=== PATIENT | female | born 1950 | race Caucasian/White ===

== ENCOUNTER 2023-09-10 10:41 | Outpatient (AMB) | payer OTHER, SELFPAY ==
--- NOTE | 2023-09-10 11:29 | AM.OFFWIN_ITS ---
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 She states that she clipped the fingernail 2 days ago and she might have clipped it too low, she states she has neuropathy so she can not feel her fingers. She states she was with a friend yesterday and the friend told her it was infected. She states she is able to move her fingers as normal and denies any fevers or pain. Patient states she does not have a primary care doctor at this time because of insurance issues. [facility] Social History Patient Tobacco Use Status: Never used Tobacco Review of Systems Const All systems reviewed & are unremarkable except as noted in HPI and below Physical Exam Vital Signs: Last Vital Signs Temp 97.8 F 09/10/23 11:31 Pulse 73 09/10/23 11:31 BP 128/72 09/10/23 11:31 Pulse Ox 97 09/10/23 11:31 BMI result Body Mass Index 30.5 Const General: cooperative, healthy appearing, comfortable and no acute distress Orientation/consciousness: patient oriented x3 Limitations: no limitations HEENT Head: Yes normal to inspection Resp Effort & Inspection: normal respiratory effort and able to speak in complete sentences Neuro General: patient oriented x3 Extrem Other: Left 3rd digit has pinpoint area of dried blood on top of distal nail. On both sides of the nail on just the skin, there is ecchymosis that extends around the pad of the distal finger. There is no warmth, no weeping, no open wound and no signs of infection noted. normal cap refill, normal ROM of the finger. Assessment & Plan Assessment & Plan (1) Finger contusion: Code(s): S60.00XA - Contusion of unspecified finger without damage to nail, initial encounter Qualifiers: Encounter type: initial encounter Finger: middle finger Damage to nail status: without damage Laterality: left Qualified Code(s): S60.032A - Contusion of left middle finger without damage to nail, initial encounter Plan: As patient is very concerned there is an infection and she does not have a primary care doctor, I will send a prescription for an antibiotic to cover cellulitis if this does turn into a cellulitis. 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 She knows of the gets worse, she should go to the emergency department. Plan See above Medications: New cefuroxime axetil 500 mg PO Q12H 10 tabs 0RF Coding Level of Care Code New Pt Level 3 (52174) Diagnoses Contusion of left middle finger without damage to nail, initial encounter S60.032A Encounter type: initial encounter Finger: middle finger Damage to nail status: without damage Laterality: left
[2023-09-10 11:31] VITALS: BP 128/72; PULSE 73; TEMP 36.6; O2SAT 97; BMI 30.5
== END 2023-09-10 11:58 | disposition home or self-care (01) ==
PROVIDERS: PCP Internal Medicine; Visit Provider Physician Assistant
DX: S60.032A Contusion of left middle finger without damage to nail, initial encounter (principal)
CPT/HCPCS: 99203

== ENCOUNTER 2023-09-18 13:45 | Outpatient (AMB) | payer OTHER, SELFPAY ==
--- NOTE | 2023-09-18 13:59 | AM.OFFWIN_ITS ---
Intake Vital Signs 09/18/23 14:00 Height 5 ft Weight 151 lb 4 oz BMI 29.5 BP 128/88 Blood Pressure Location Lt brachial Position Sitting Pulse 82 Pulse Source Pulse Oximeter Temp 97.0 F Temp Source Temporal Artery Scan Pulse Oximetry (%) 96 Oxygen Delivery Method Room Air Intake Visit Reasons: EP Fever, congestion/?bronchitis Intake Note: Bonita is a 73 year old female who presents to the office today for c/o fever,congestion, ? bronchitis that started Saturday09/15/23. Pt states she does know of someone she was in contact with (not close) that has covid. Patient Tobacco Use Status: Never used Tobacco Allergies No Known Allergies [No Known Allergies*] Allergy (Unverified 09/18/23 14:01) HPI HPI Comments History of Present Illness Details 73 year old female who presents to the [facility] in clinic today for c/o fever,congestion, ? bronchitis that started Saturday09/15/23. Pt states she does know of someone she was in contact with (not close) that has covid. [facility] Social History Patient Tobacco Use Status: Never used Tobacco Review of Systems Const All systems reviewed & are unremarkable except as noted in HPI and below Physical Exam Vital Signs: Last Vital Signs Temp 97.0 F 09/18/23 14:00 Pulse 82 09/18/23 14:00 BP 128/88 09/18/23 14:00 Pulse Ox 96 09/18/23 14:00 Oxygen Delivery Method Room Air 09/18/23 14:00 BMI result Body Mass Index 29.5 Const General: comfortable and no acute distress Nutritional Appearance: overweight Orientation/consciousness: patient oriented x3 HEENT Head: Yes normocephalic Ears: external ears normal and TM abnormal with fluid behind the TM General nose exam: Normal nasal mucous membranes and turbinates present Face and sinus: Yes sinuses nontender Mouth: moist mucous membranes Throat: Yes postnasal drainage Resp Effort & Inspection: normal respiratory effort and able to speak in complete sentences Auscultation: clear to auscultation bilaterally, no crackles, no rales and no rhonchi Cardio Rhythm: abnormal rhythm irregularly irregular Heart sounds: Murmur heart sound present Neuro General: patient oriented x3, gait normal and moves all extremities Psych Speech and movement: Normal speech and movement present Assessment & Plan Assessment & Plan (1) Upper respiratory infection: Code(s): J06.9 - Acute upper respiratory infection, unspecified Qualifiers: URI type: unspecified viral URI Qualified Code(s): J06.9 - Acute upper respiratory infection, unspecified Plan: Rest and hydrate well with plenty of fluids Acetaminophen for pain relief OTC cold remedies. Orders: Orders SARS-CoV2/FLU/RSV Today J06.9 - Acute upper respiratory infection, unspecified Medications: New dmfylbqwjgtep-OT-uiegbyilxix 5-10-100 mg/5 mL (Adult Robitussin Peak Cold M-S) 10 mL PO Q4H PRN 237 mL 0RF cold symptoms J06.9 - Acute upper respiratory infection, unspecified acetaminophen 1,000 mg (2 x 500 mg) PO Q6H PRN 30 caps 0RF fever J06.9 - Acute upper respiratory infection, unspecified benzonatate 100 mg PO TID 30 caps 0RF J06.9 - Acute upper respiratory infection, unspecified Coding Level of Care Code Est Pt Level 3 (60668) Diagnoses Viral upper respiratory tract infection J06.9 URI type: unspecified viral URI Time Spent (min) 15
[2023-09-18 14:00] VITALS: BP 128/88; PULSE 82; TEMP 36.1; O2SAT 96; BMI 29.5
== END 2023-09-18 14:33 | disposition home or self-care (01) ==
PROVIDERS: PCP Internal Medicine; Visit Provider Nurse Practitioner Family
DX: J06.9 Acute upper respiratory infection, unspecified (principal)
CPT/HCPCS: 99213

== ENCOUNTER 2023-09-18 14:09 | Outpatient (REF) | payer OTHER, SELFPAY ==
[2023-09-18 18:00] LABS: Influenza A PCR NEGATIVE (Negative); Influenza B PCR NEGATIVE (Negative); Resp Syncy Virus RNA Qual PCR NEGATIVE (Negative); SARS COV2 PCR INHOUSE POSITIVE (Negative)
== END 2023-09-18 14:10 | disposition home or self-care (01) ==
LOC: HO.LAB 14:09
PROVIDERS: Visit Provider Nurse Practitioner Family
DX: J06.9 Acute upper respiratory infection, unspecified (principal)
CPT/HCPCS: 0241U

== ENCOUNTER 2025-01-25 08:58 | Outpatient (AMB) | payer OTHER, SELFPAY ==
--- NOTE | 2025-01-25 09:02 | A.OFFVIS_ITS ---
Intake Visit Reasons: GBS abnormal gait Allergies No Known Allergies (No Known Allergies*) Allergy (Unverified 09/18/23 14:01) HPI Comments Details: The patient is a 74 year old individual presenting for a new patient neurology consultation for management of chronic neuropathy. 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 Following the h ospitalization, the patient completed two rehabilitation programs. As a sequela of Guillain-Porter? syndrome, the patient has been left with weakness and chronic neuropathy characterized by numbness, tingling, and pain in the hands and feet. The patient feels the neuropathy is not improving and may be worsening, which is attributed to age. This has resulted in balance issues and difficulty walking upstairs. The patient reports that symptoms in the hands feel worse later in the evening and also notes new swelling in the feet. The patient is currently taking two pills of gabapentin at night after having weaned down the dosage and is able to sleep without disruption from pain. The patient also believes there is a component of arthritis. The patient was previously followed by a neurologist in the [facility] but is seeking a new provider due to dissatisfaction with the previous care, citing brief visits and lack of physical examination. [facility] Social History Patient Tobacco Use Status: Never used Tobacco Review of Systems Narrative Constitutional:?No fever, chills, fatigue, weight loss, or night sweats. HEENT:? Complain of dryness and redness of eyes in hearing Cardiovascular:?No chest pain, palpitations, orthopnea, PND, or leg swelling. Respiratory:? Complain of wheezing Gastrointestinal:?No nausea, vomiting, abdominal pain, diarrhea, or constipation. Genitourinary:?No dysuria, frequency, incontinence, or hematuria. Musculoskeletal:? Complain of joint pains Neurological:? Complain of numbness and tingling and leg cramping Psychiatric:?No anxiety, depression, mood swings, sleep disturbance, or hallucinations. Endocrine:?No heat/cold intolerance, polydipsia, polyuria, or hair/skin changes. Hematologic/Lymphatic:?No easy bruising, bleeding, or lymphadenopathy. Integumentary (Skin):? Complain of rash Allergic/Immunologic:?No seasonal allergies, hives, or recurrent infections. Physical Exam Neuro Other: Mental Status: Alert and oriented to person, place, and time. Normal attention. Normal spontaneous speech, fluency, and comprehension. Cranial Nerves: CN II: Visual kidd full to confrontation, visual acuity intact. CN III, IV, : Pupils equal, round, reactive to light and accommodation. Extraocular movements are normal. CN V: Facial sensation is normal. CN VII: Facial movements symmetrical. CN VIII: Hearing intact to bedside conversation is normal. CN IX, X: Palate elevates symmetrically. CN XI: Shoulder shrug and head turn symmetrical. CN XII: Tongue midline without atrophy or fasciculations. Motor: No focal arm or leg weakness. Mild hand and feet muscle atrophy. Reflexes: Deep tendon reflexes are absent in ankles trace in knees and arms. Plantars are flexor. Coordination: Yghtef-wv-ibvo and ucrr-fh-acry testing normal. No dysmetria. Gait and Station: No obvious gait abnormality. No ataxia or instability. Sensory: Decreased cold and vibratory sensation in feet. Joint position sensation is absent in toes. Extrapyramidal: Full facial expressions and blinking. No rigidity. Movements are appropriate with no tremor or abnormality. Speech: Normal; no dysarthria or tremor. 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 After finishing treatment in hospital, she was referred to rehab which she did for many weeks. Slowly and gradually she improved. After that she continued to follow probably a rehab doctor and wanted to switch her care to a neurologist. Her present symptoms were numbness tingling and pain in hands and feet. She said that these symptoms were not improving and maybe slowly getting worse. There was no bowel or bladder difficulty or difficulty with speaking or breathing. No problem with swallowing. Her examination revealed signs of chronic peripheral neuropathy probably sensory more than motor. EMG nerve co nduction studies were requested to classify in great neuropathy. She was educated about chronic peripheral neuropathy in his symptoms, some of which might be permanent. As far as treatment is concerned, she was advised to minimize use of gabapentin and only use it on either at night or on as needed basis as her symptoms or relatively mild and treatment could be avoided during daytime. She should stay physically active and tried to walk every day. Orders: Orders NE electromyogram (EMG) Today G6 - Chronic inflammatory demyelinating polyneuritis NE nerve conduction velocity Today - Chronic inflammatory demyelinating polyneuritis Coding Level of Care Code New Pt Level 4 (29982) Diagnoses CIDP (chronic inflammatory demyelinating polyneuropathy) G6
--- OUTSIDE RECORDS SUMMARY | 2025-01-25 10:16 | XMS_ITS | Clinical Summary ---
Author Organization [facility] Address [address] [address] Phone Care Team Providers Care Lineman Name Role Phone Vanessa Kelly MD Primary Care Provider [phone] Allergies Active Allergy Reactions Criticality Noted Date Comments Grass Pollen 10/02/2023 Pollen Extracts 10/02/2023 Medications FLUoxetine (PROZAC) 10 MG capsule Orally Active OMEPRAZOLE ORAL Active CALCIUM ORAL Active Medication-Abdifatah e Text Osteo Bi-Flex Adv Double St Active Medication-Abdifatah e Text Vitamin A 1000 iu Ac tive atenolol (TENORMIN) 50 mg tablet Active Medication-Abdifatah e Text Multivitamins Active ALBUTEROL SULFATE INHL 2 puffs prn Activ e albuterol 90 mcg/actuation inhaler Inhale 2 puffs into the lungs. 4 Active FLUoxetine (PROZAC) 20 MG capsule Take 1 capsule by mouth daily. 4 Active gabapentin (NEURONTIN) 100 MG capsule Take 2 capsules by mouth daily. 3 Active amLODIPine (NORVASC) 5 MG tablet Take 1 tablet by mouth daily. 4 Active atenolol (TENORMIN) 50 mg tablet Take 1 tablet by mouth daily. 4 Active calcium carbonate (OS-BRENDAN) 1,500 mg (600 mg elemental) tablet Take 600 mg by mouth. 4 Active cholecalcifero l (VITAMIN D3) 2,000 unit tablet Take 2,000 Units by mouth daily. Active Active Problems No known active problems Social History Tobacco Use Types Packs/Day Years Used Date Smoking Tobacco: Never Smokeless Tobacco: Never Tobacco Cessation:Counseling Given: Not Answered Education Answer Date Recorded Are you interested in more education? Not on sagrario e 05/15/2023 Are you concerned about learning? Not on file 05/15/2023 No 05/15/2023 No 05/15/2023 Digital Access Answer Date Recorded No 05/15/2023 No 05/15/2023 Reliable internet access at home? Not on file 05/15/2023 Device with a working camera? Not on file Comments Unknown Sex and Gender Information Value Date Recorded Sex Assigned at Not on file Legal Sex Female 10:03 PM EDT Gender Identity Not on file Sexual Orientation Not on file Last Filed Vital Signs Vital Sign Reading Time Taken Comments Blood Pressure 136/84 01/11/2016 2:23 AM EST Pulse 52 01/11/2016 2:23 AM EST Temperature - - Respiratory Rate - - Oxygen Saturation - - Inhaled Oxygen Concentration - - Weight 66.1 kg (145 lb 11.2 oz) 01/11/2016 2:23 AM EST Height 151.1 cm (4' 11.5 ) 01/11/2016 2:23 AM ES T Body Mass Index 28.94 01/11/2016 2:23 AM EST Plan of Treatment Health Maintenance Due Date Last Done Comments DEPRESSION SCREENING 1961 HEPATITIS C SCREENING 1967 COLOGUARD 1994 COLONOSCOPY 1994 COLORECTAL CANCER SCREENING 1994 FIT TEST 1994 FOBT 1994 SIGMOIDOSCOPY 1994 VIRTUAL COLONOSCOPY 1994 ZOSTER VACCINES (2 of 3) 08/25/2012 06/30/2012 OSTEOPOROSIS SCREENING INITIAL (ONE-TIME) 2014 PNEUMOCOCCAL VACCINES (50+ years) (3 of 3 - PCV20 or PCV21) 02/24/2023 02/24/2018, 11/08/2010 RSV VACCINE (1 - 1-dose 75+ series) 2024 INFLUENZA VACCINE (#1) 2024 7, 02/04/2014, 01/12/2013, Additional history exists COVID-19 VACCINE (3 - 2024- season) 2024 10/21/2020, 08/24/2020 Adult Td,Tdap Booster 02/25/2028 02/24/2018, 011 LIPID PANEL 08/18/2028 08/19/2023 SMOKING STATUS SCREENING (Once After 26 Yrs) Completed 10/02/2023 HEPATITIS A VACCINES Aged Out No long er eligible based on patient's age to complete this topic HIB VACCINES Aged Out No longer eligi ble based on patient's age to complete this topic MENINGOCOCCAL VACCINES (ACWY) Aged Out No longer eligible based on patient's age to complete this topic MENINGOCOCCAL VACCINES (B) Aged Out N o longer eligible based on patient's age to complete this topic Medical [place] [address] [facility] MEDICARE REPLACEMENT MEDICARE PART A & B GRACIE MULLIGAN [id number] GRACIE [address] [id number] [facility] [place] [address] [facility] [place] [address] [facility] [place] [address] [facility] [place] [address] [facility] [place] [address] [facility] [place] [address] Care Teams Lineman Relationship Specialty Start Date End Date Vanessa Kelly MD [address] [place] [address] PCP - General 05/15/23 Additional Source Comments The information contained in this document represents components of the legal health record. It is not the complete legal health record.[facility]
--- OUTSIDE RECORDS SUMMARY | 2025-01-25 10:16 | XMS_ITS | Data Portability ---
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 Exam continues to show mild imbalance but the armswing is normalized. Weakness is only borderline appreciable on left wrist extension versus last year:mild weakness in wrist flexion and extension as well as thumb abduction. She wishes advice on cream that might have benefit for neuropathic discomfort of her ocid-fzp-wggqidn tingling in forearms and hands as she is concerned about increasing gabapentin anymore given the potential of side effects. We discussed lidocaine 4% cream and capsaicin cream and I give her some advice on these znur-ose-aeimphi medications as detailed in the plan below. She wonders if she can get the new shingles vaccine. I tell her there is no contraindication for her from the neurological perspective. She wonders if she should get arthritis consultation for discomfort in her hands that she feels is arthritis. I asked her to discuss this with primary care. I can only speculate about the recent that she feels some visual compromise wearing a mask both driving and writing. Perhaps she is looking to close I had of her so that the mask protrudes into the lower visual field. Perhaps some occupational therapy for how she observes the environment both walking and driving might be of benefit. Driving, if there is no one else in the car, she could just not wear a mask. I defer pursuit of this issue to primary care. She reports no other changes in medications since his initial consultation: Medications: acidophilus, atenolol 50 mg daily, amlodipine, fluoxetine 20 mg daily, gabapentin 200 mg 2 times a day, nasal spray, magnesium oxide, aspirin 81 mg daily, calcium Diagnostic pathway review: Although electrodiagnostic studies are not diagnostic of Guillain-Porter syndrome, the abnormal findings, likely reflecting demyelination, compared with her monophasic course with recent definitive although incomplete improvement, make this diagnosis very plausible. PLAN Bonita Palmer November 02, 2020 To help with pins and needles tingling numb discomfort of hands, feet and chest, and to keep away itching of scalp: CONTINUE Gabapentin 100 mg capsules, 2 capsules 2 times a day spaced as follows: 8 AM 2 capsules Noon 2 capsules Additionally, you might want to try lidocaine 4% cream that is available ffeg-yhv-dytbemv at the pharmacy. It does not matter what the label says, whether it is for arthritis or for neuropathy or for anything else. As long as the active ingredient is lidocaine 4%, this is what I mean. Additionally you might want to try: Capsaicin cream 0.025%, or 0.075%, [id number]-ustnfys at your pharmacy. Ask you are pharmacist to help you find it. Capsaicin cream usually causes initial side effects of burning or stinging on your skin. This usually goes away over to-4 weeks, as it begins to help your own pain. However, if this side effect is too intense for you, stop the medication. Apply a small amount of capsaicin cream to the painful area on your skin 4 times a day at evenly space intervals. Do not use capsaicin cream in any area or you have broken skin. Please try the lower concentration 0.025% capsaicin cream first to make sure that the pain during the initial 2 weeks is not too intense. Capsaicin cream often does not begin to help pain in the area that you applied for several days, up to 2 weeks. If it does not help after 4 weeks, and the pain was not too intense for the lower concentration, you may consider trying the higher concentration of capsaicin cream (0.075%). CONTINUE home exercises learned from physical therapy. In particular, continue home exercises that have helped the flat feeling in your gluteal region. Continue home exercises for balance. Follow-up in 11 months, or sooner for worsening or new neurological symptomatology. 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 We agree that I will refill her reduced dose gabapentin, 200 mg every morning and we will make no other changes. Impression from exam October 2020: Exam continues to show mild imbalance but the armswing is normalized. Weakness is only borderline appreciable on left wrist extension versus last year:mild weakness in wrist flexion and extension as well as thumb abduction. Diagnostic pathway review: Although electrodiagnostic studies are not diagnostic of Guillain-Porter syndrome, the abnormal findings, likely reflecting demyelination, compared with her monophasic course with recent definitive although incomplete improvement, make this diagnosis very plausible. PLAN Bonita Palmer October 09, 2021 To help with pins and needles tingling numb discomfort of hands, feet and chest, and to keep away itching of scalp: CONTINUE Gabapentin 100 mg capsules, 2 capsules 2 times a day spaced as follows: 8 AM 2 capsules CONTINUE home exercises learned from physical therapy. In particular, continue home exercises that have helped the flat feeling in your gluteal region. Continue home exercises for balance. Follow-up in 11 months, or sooner for worsening or new neurological symptomatology. 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 We agree that I will refill her reduced dose gabapentin, 200 mg every morning and we will make no other changes. Impression from exam October 2020: Exam continues to show mild imbalance but the armswing is normalized. Weakness is only borderline appreciable on left wrist extension versus last year:mild weakness in wrist flexion and extension as well as thumb abduction. Diagnostic pathway review: Although electrodiagnostic studies are not diagnostic of Guillain-Porter syndrome, the abnormal findings, likely reflecting demyelination, compared with her monophasic course with recent definitive although incomplete improvement, make this diagnosis very plausible. PLAN Bonita Palmer September 10, 2022 To help with pins and needles tingling numb discomfort of hands, feet and chest, and to keep away itching of scalp: CONTINUE Gabapentin 100 mg capsules: 8 AM 2 capsules CONTINUE home exercises learned from physical therapy. In particular, continue home exercises that have helped the flat feeling in your gluteal region. Continue home exercises for balance. Follow-up in 11 months, or sooner for worsening or new neurological symptomatology. 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 We agree that I will refill her reduced dose gabapentin, 200 mg every morning and we will make no other changes. Impression from exam October 2020: Exam continues to show mild imbalance but the armswing is normalized. Weakness is only borderline appreciable on left wrist extension versus last year:mild weakness in wrist flexion and extension as well as thumb abduction. Diagnostic pathway review: Although electrodiagnostic studies are not diagnostic of Guillain-Porter syndrome, the abnormal findings, likely reflecting demyelination, compared with her monophasic course with recent definitive although incomplete improvement, make this diagnosis very plausible. PLAN Bonita Pereirahenson September 16, 2023 To help with pins and needles tingling numb discomfort of hands, feet and chest, and to keep away itching of scalp: INCREASE Gabapentin 100 mg capsules back to bid: 8 AM 2 capsules 8PM 2 capsules CONTINUE home exercises learned from physical therapy. In particular, continue home exercises that have helped the flat feeling in your gluteal region. Continue home exercises for balance. Follow-up in 11 months, or sooner for worsening or new neurological symptomatology. 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 --October 07, 2024 scary burning foot pain September 10 evening, subsequent [facility] admission, since: Back on gabapentin 200 mg morning and evening (5 PM or 8 PM) >>>>>>>>>>>>October 07, 2024 Even though she has continued tingling that is bothersome in the evening, she is not interested in a further increase, for instance to the 300 mg that was suggested to her during her inpatient [facility] stay. She wonders if there is a new medication for neuropathic pain out there. I tell her not one applicable to her situation. How other there are other medications besides gabapentin (e.g., SNRI). These would have the advantage of avoiding the potential of gait impairment that gabapentin carries. She understands that. She is not having any stumbling or gait impairment. She prefers to stay on gabapentin. She prefers to hold off on any increases. I will continue her gabapentin 200 mg twice a day. Impression from exam October 2020: Exam continues to show mild imbalance but the armswing is normalized. Weakness is only borderline appreciable on left wrist extension versus last year:mild weakness in wrist flexion and extension as well as thumb abduction. Diagnostic pathway review: Although electrodiagnostic studies are not diagnostic of Guillain-Porter syndrome, the abnormal findings, likely reflecting demyelination, compared with her monophasic course with subsequent definitive although incomplete improvement, make this diagnosis very plausible. PLAN Bonita Palmer October 07, 2024 To help with pins and needles tingling numb discomfort of hands, feet and chest, and to keep away itching of scalp: CONTINUE Gabapentin 100 mg capsules back to bid: 8 AM 2 capsules 8PM 2 capsules CONTINUE home exercises learned from physical therapy. In particular, continue home exercises that have helped the flat feeling in your gluteal region. Continue home exercises for balance. Follow-up in 11 months, or sooner for worsening or new neurological symptomatology. [email or web address] Not available 10/07/2024 08:48:53 Plan of Treatment Reminders Order Date Submit Date Provider Last Modified By Organization Details Last Modified Time Details Appointments FOLLOW UP EXT 2025 10:00A Mikki Diana MD PhD Not available Not available Not available Lab None recorded. Referral None recorded. Procedures None recorded. Surgeries None recorded. Imaging None recorded. Medication Orders gabapenti n 100 mg capsule 2024 025 KIERRA [facility], [facility] [address], [facility] [address], [place], [place], [id number], 10/07/2024 08:48:56 gabapenti n 100 mg capsule 2023 024 KIERRA [facility], [address], [address], [place], [place], [id number], 09/16/2023 14:48:23 gabapenti n 100 mg capsule 2022 023 KIERRA [facility], [address], [address], [place], [place], [id number], 09/10/2022 10:14:05 gabapenti n 100 mg capsule 2021 022 KIERRA [facility], [address], [address], [place], [place], [id number], 10/09/2021 12:26:20 gabapenti n 100 mg capsule 2020 021 KIERRA [facility], [address] [facility] [facility] [address], [address], [place], [place], [id number], 11/02/2020 12:33:43 Patient TargetsNo targets recorded. Patient Instructions Encounter Date Encounter Id Patient Instructions Last Modified By Organization Details Last Modified Time 10/09/2021 [id number] BILLING Chronic condition with exacerbation; prescription medication management [email or web address] Not available 10/09/2021 12:40:26 09/10/2022 [id number] BILLING Chronic condition with exacerbation; prescription medication management mrossen Not available 09/10/2022 10:03:30 09/16/2023 [id number] BILLING Chronic condition with exacerbation; prescription medication management Discussion across issues of diagnoses and management and same day associated chart review and management greater than 50% greater than 40 minutes [email or web address] Not available 09/16/2023 14:48:11 10/07/2024 [id number] BILLING Chronic condition with exacerbation; prescription medication management Discussion across issues of diagnoses and management and same day associated chart review and management greater than 50% greater than 40 minutes [email or web address] Not available 10/07/2024 08:07:53 Reason for Referral None Reported. Procedures Surgical History Date Name Laterality Status Provider Name and Address Organization Details Recorded Time 10/07/2024 DATA REVIEW completed Darryl Diana MD [address] [place] [address] [place], [phone], [facility] Neurology [facility] 10/07/2024 08:44:51 Imaging Results None recorded. Procedure Notes None recorded. Medical Equipment None Reported. Medications Name Sig Start Date Stop Date Status Note LastModified by Organization Details LastModified Time prednisone 10 mg tablet active Not Available Not Available Not Available doxycycline hyclate 100 mg capsule TAKE 1 CAPSULE TWICE DAILY WITH AT LEAST 8 OUNCES OF WATER DO NOT LIE DOWN FOR 30 MINUTES AFTER active Not Available Not Available No t Available ofloxacin 0.3 % eye drops INSTILL 1 DROP TO AFFECTED EYE FOUR TIMES DAILY active Not Available Not Available Not Available prednisone 20 mg tablet TAKE 3 TABLETS BY MOUTH DAILY FOR 3 DAYS THEN TAKE 2 TABLETS BY MOUTH DAILY FOR 3 DAYS THEN TAKE 1 TABLET BY MOUTH DAILY FOR 3 DAYS active Not Available Not Available N ot Available alendronate 70 mg tablet TAKE 1 TABLET BY MOUTH EVERY 7 DAYS TAKE IN AM ON EMPTY STOMACH WITH 8 OUNCES WATER AND 30 MINUTES BEFORE EATING active Not Available Not Available No t Available betamethason e, augmented 0.05 % topical cream active Not Available Not Available Not Available amlodipine 2.5 mg tablet active Not Available Not Available Not Available amlodipine 5 mg tablet active Not Available Not Available No t Available doxycycline monohydrate 100 mg tablet TAKE 1 TABLET BY MOUTH TWICE DAILY FOR 7 DAYS NEEDED CYST FLARES . TAKE WITH FOOD MAY CAUSE SUN SENSITIVITY active Not Available Not Available Not Available acetaminophe n 500 mg tablet TAKE 2 TABLETS BY MOUTH EVERY 6 HOURS NEEDED FOR FEVER active Not Available Not Available No t Available ketorolac 0.5 % eye drops INSTILL ONE DROP INTO RIGHT EYE FOUR TIMES DAILY active Not Available Not Available No t Available calcium 600 mg (as calcium carbonate 1,500 mg) tablet active Not Available Not Available Not Available prednisolone acetate 1 % eye drops,suspen negar INSTILL 1 DROP TO RIGHT EYE FOUR TIMES DAILY FOR 1 WEEK TAPER DIRECTED active Not Available Not Available Not Available benzonatate 100 mg capsule TAKE 1 CAPSULE BY MOUTH THREE TIMES DAILY active Not Available Not Available Not Available cephalexin 500 mg capsule TAKE 1 CAPSULE BY MOUTH TWICE DAILY FOR 5 DAYS WITH FOOD AND GLASS OF WATER active Not Available Not Available No t Available tobramycin 0.3 % eye drops INSTILL 1 DROP IN LEFT EYE FOUR TIMES DAILY FOR 1 WEEK active Not Available Not Available No t Available gabapentin 300 mg capsule TAKE 1 CAPSULE BY MOUTH EVERY DAY active Not Available Not Available No t Available gabapentin 100 mg capsule Take 2 capsules twice a day by oral route for 90 days. 2024 active Not Available Not Available Not Avai lable cefuroxime axetil 500 mg tablet active Not Available Not Available No t Available albuterol sulfate HFA 90 mcg/actuatio n aerosol inhaler INHALE 2 PUFFS INTO THE LUNGS EVERY 4 HOURS NEEDED FOR COUGH OR WHEEZING active Not Available Not Available No t Available fluoxetine 20 mg capsule active Not Available Not Available Not Available doxycycline hyclate 100 mg tablet TAKE 1 TABLET BY MOUTH TWICE DAILY WITH FOOD AND A GLASS OF WATER FOR 7 DAYS active Not Available Not Available No t Available atenolol 50 mg tablet active Not Available Not Available No t Available amoxicillin 875 mg-potassium clavulanate 125 mg tablet TAKE 1 TABLET BY MOUTH TWICE DAILY FOR 10 DAYS active Not Available Not Available No t Available moxifloxacin 0.5 % eye drops INSTILL 1 DROP IN LEFT EYE FOUR TIMES DAILY FOR 1 WEEK active Not Available Not Available No t Available cholecalcife rol (vitamin D3) 50 mcg (2,000 unit) tablet TAKE 1 TABLET BY MOUTH DAILY active Not Available Not Available Not Available Vitals None Recorded Social History None recorded. Functional Status None recorded. Mental Status None recorded. Family History Nothing Reported. Medical History No medical history recorded. Gynecological HistoryNo gynecological history recorded. Obstetrics History GPAL:G 0 P 0 0 0 0 Past Encounters Encounter ID Performer Location Encounter Start Date Encounter Closed Date Diagnosis/Indication Diagnosis SNOMED-CT Code Diagnosis ICD10 Code Diagnosis IMO Codes Diagnosis Note [id number] Darryl Diana MD [address] [place] [address] 11/02/2020 11:53:57 11/02/2020 13:21:00 Guillain-Porter syndrome 58852004 G61.0 Abnormal gait 54754431 R 26.81 [id number] Darryl Diana MD [address] [place] [address] 10/09/2021 11:55:45 10/09/2021 17:20:18 Guillain-Porter syndrome 50881560 G61.0 Abnormal gait 34965066 R 26.81 [id number] Darryl Diana MD [facility] [address] [place] [address] [place] [address] 09/10/2022 09:52:36 09/10/2022 10:34:11 Guillain-Porter syndrome 03228851 G61.0 Abnormal gait 65170188 R 26.81 [id number] Darryl Diana MD [facility] [address] [place] [address] [place] [address] 09/16/2023 13:41:02 09/16/2023 17:18:15 Guillain-Porter syndrome 12810182 G61.0 Abnormal gait 34778883 R 26.81 [id number] Darryl Diana MD [address] [place] [address] 10/07/2024 08:01:25 10/09/2024 09:54:08 Guillain-Porter syndrome 85564240 G61.0 Abnormal gait 30295172 R 26.81 Health Concerns Section Related Observation LastModified by Organization Detai ls LastModified Time None Recorded Concern Status LastModified by Organization Details LastModified Time None Recorded Advance Directives Directive None Recorded Payers Insurance Date Sequence Insurance Name Policy Number Policy Retana Covered Member ID Retana Member ID Guarantor Name 10/07/2024 1 [facility] (MEDICARE REPLACEMENT/A DVANTAGE - PPO) [id number] Bonita Palmer [id number] Bonita Palmer Notes Date Note Type Note Provider Name and Address Organization Details Recorded Time 11/02/2020 text/html FOllow up, with neuropathic discomfort, context of 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 She is unaccompanied. Not present: her daughter, Deneen. Since October 28, 2019, most recent neurology follow up encounter, just over 1 year ago, she has gotten her license, just 1 month ago. She does not use hand controls. Even though she has residual numbness in her feet she has a sufficient feeling in control of the pedals. She is driving without accident or significant problem. She does feel that when she is wearing a mask her visual field is suboptimal. She has had additional improvements in using her hands s he is surprised by how some subtle things can change with additional work and improvement even 2 years after her initial illness July 2018. She still has problems with some fine manipulation such as handling the post of an earring behind her ear. She thinks part of the residual manipulation issue relates not only to neuropathy but also to arthritis that she feels is developing. She continues with kghv-zqw-dfuckzf discomfort in her forearms and hands. She continues on her reduced dose of gabapentin 200 mg 8 AM and noon, not taking the 4 PM and 8 AM doses since late 2018/early 2019. She still has the cels-nkg-xtziojo tingling in the afternoon, and even in the morning. She is reluctant to increase the gabapentin even though she has had no side effects. She has read about potential side effects and they cause her concern. She continues to walk without cane or walker. She notices no weakness. She notices some instability and has to be careful with uneven surfaces. She has had 2 falls n ot on uneven surfaces but in exiting a vehicle. She has not sustained any fractures. Presenting symptomatology was reviewed from initial neurology consultation November 12, 2018: In July 2018, she developed numbness and weakness, slowly worsening, making it difficult to pursue daily activities. 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 There was no intubation. She did not lose bladder function. There was no problem with her heart. She was discharged for one month of rehabilitation at [facility], another month of rehabilitation at [facility] and has been home since the very end of September, 3 weeks ago, with home PT and home OT. A visiting nurse comes periodically to monitor her medications but she is in charge of her day to day medications. She continues to walk with her walker. She does not feel much imbalance. She does not report recent fall. Her main strength issue isnt upper extremities where she cannot lift her shoulders and her shoulders feel very stiff. Her main pain issue is in her hands and feet where she has 5-6/10 pain that is tolerable although she wishes it was less. She cannot say whether gabapentin 200 mg 3 times a day helps. Higher dose caused her drowsiness but this resolved with lowering to the present dose which causes no side effects. She cannot say whether Tylenol 1000 mg 3 times a day is providing any benefit. She also has squishy discomfort in her gluteal muscles that is worse if she is sitting for a long period of time. She is on Prozac for many years for depression. She tried going off it 2 years ago and this was successful for a while but then she got depressed and went back on it. It continues to help her mood since then. 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 She is unaccompanied. Not present: her daughter, Deneen. Since November 02, 2020 neurology follow-up encounter, her tingling has improved so that she has been able to reduce her dose of gabapentin from 200 mg 8 AM and 200 mg 2 PM to just 200 mg 8 AM. She had no side effects but reiterates what she has said in the past s he wishes to minimize medication because of the POTENTIAL of side effects. In this. She never tried any of the oymv-lgi-uybripi suggestions I made, lidocaine 4% cream or capsaicin cream.She noticed that the reduction of gabapentin in intermittent worsened tingling right around bedtime. Yet, after she has gotten into bed, that worsened tingling has not been severe at all and has not hindered sleep at all.Her only other medication change has been reduction of one of her blood pressure medications, amlodipine, up from 5 mg down to 2.5 mg. This was for the same reason as with the gabapentin h er philosophy on minimizing medication doses. I told her that I believe it is important to treat hypertension sufficiently to minimize the chance of stroke. She agrees with me on that.She has continued with her improved ability to use her hands. She has been driving for over a year now and this is going well. 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 She has switched all her other jewelry to magnetic attachments with the help of one of her relatives.She has had no recurrence of any falls following the two falls leading to October 2020 appointment. She continues to walk without any gait aid. She notices no weakness. She notices some instability and has to be careful with uneven surfaces. She dances once a week and loves this part of her life. She calls herself a dancing mama. She spontaneously notes that continues religiously physical therapy rehabilitation exercises that she learned in 2019 and feels that she will always have to do this. She notices chronic differences from before Flakita and has learned to live with that. Presenting symptomatology was reviewed from initial neurology consultation November 12, 2018: In July 2018, she developed numbness and weakness, slowly worsening, making it difficult to pursue daily activities. 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 There was no intubation. She did not lose bladder function. There was no problem with her heart. She was discharged for one month of rehabilitation at [facility], another month of rehabilitation at [facility] and has been home since the very end of September, 3 weeks ago, with home PT and home OT. A visiting nurse comes periodically to monitor her medications but she is in charge of her day to day medications. She continues to walk with her walker. She does not feel much imbalance. She does not report recent fall. Her main strength issue isnt upper extremities where she cannot lift her shoulders and her shoulders feel very stiff. Her main pain issue is in her hands and feet where she has 5-6/10 pain that is tolerable although she wishes it was less. She cannot say whether gabapentin 200 mg 3 times a day helps. Higher dose caused her drowsiness but this resolved with lowering to the present dose which causes no side effects. She cannot say whether Tylenol 1000 mg 3 times a day is providing any benefit. She also has squishy discomfort in her gluteal muscles that is worse if she is sitting for a long period of time. She is on Prozac for many years for depression. She tried going off it 2 years ago and this was successful for a while but then she got depressed and went back on it. It continues to help her mood since then. 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 She is unaccompanied. Not present: her daughter, Deneen. Since October 09, 2021 neurology follow-up encounter, she has been doing well with her neuropathy. She still feels the tingling daily, hands more than feet. In the hands, it is from the wrists distally. That has not stopped her from taking up sewing again over the past year. She is slow but she can do it. If she forgets the gabapentin 200 mg every 8 AM, she begins to notice more intense tingling later in the day, especially in the evening. Therefore, she has not tried to reduce further since 2020 reduction from 200 mg twice a day down to her present once a day dosing. She has no side effects to the gabapentin.She walks well without stumbling and Moreover, she has continued her Saturday weekly dancing. She really enjoys this and she is dancing better, able to do some movements with bending down and standing up that she was not previously able to do. She continues her daily home exercises for balance that she learned from physical therapyShe has had reconsultation with cardiology after not seeing them for a long time, context developmental with a heart murmur; and hypertension. They have increased her blood pressure medication amlodipine from 2.5 mg up to 5 mg. There have been no other medication changes and there have been no changing medical issues. Her mood is good. >>>>>>>>>>>>>>>>>>>> > October 09ince November 02, 2020 neurology follow-up encounter, her tingling has improved so that she has been able to reduce her dose of gabapentin from 200 mg 8 AM and 200 mg 2 PM to just 200 mg 8 AM. She had no side effects but reiterates what she has said in the past s he wishes to minimize medication because of the POTENTIAL of side effects. In this. She never tried any of the drze-iis-bbnbijl suggestions I made, lidocaine 4% cream or capsaicin cream.She noticed that the reduction of gabapentin in intermittent worsened tingling right around bedtime. Yet, after she has gotten into bed, that worsened tingling has not been severe at all and has not hindered sleep at all.Her only other medication change has been reduction of one of her blood pressure medications, amlodipine, up from 5 mg down to 2.5 mg. This was for the same reason as with the gabapentin [facility] philosophy on minimizing medication doses. I told her that I believe it is important to treat hypertension sufficiently to minimize the chance of stroke. She agrees with me on that.She has continued with her improved ability to use her hands. She has been driving for over a year now and this is going well. 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 She has switched all her other jewelry to magnetic attachments with the help of one of her relatives.She has had no recurrence of any falls following the two falls leading to October 2020 appointment. She continues to walk without any gait aid. She notices no weakness. She notices some instability and has to be careful with uneven surfaces. She dances once a week and loves this part of her life. She calls herself a dancing mama. She spontaneously notes that continues religiously physical therapy rehabilitation exercises that she learned in 2019 and feels that she will always have to do this. She notices chronic differences from before Fl[place] and has learned to live with that. Presenting symptomatology was reviewed from initial neurology consultation November 12, 2018: In July 2018, she developed numbness and weakness, slowly worsening, making it difficult to pursue daily activities. 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 There was no intubation. She did not lose bladder function. There was no problem with her heart. She was discharged for one month of rehabilitation at [facility], another month of rehabilitation at [facility] and has been home since the very end of September, 3 weeks ago, with home PT and home OT. A visiting nurse comes periodically to monitor her medications but she is in charge of her day to day medications. She continues to walk with her walker. She does not feel much imbalance. She does not report recent fall. Her main strength issue isnt upper extremities where she cannot lift her shoulders and her shoulders feel very stiff. Her main pain issue is in her hands and feet where she has 5-6/10 pain that is tolerable although she wishes it was less. She cannot say whether gabapentin 200 mg 3 times a day helps. Higher dose caused her drowsiness but this resolved with lowering to the present dose which causes no side effects. She cannot say whether Tylenol 1000 mg 3 times a day is providing any benefit. She also has squishy discomfort in her gluteal muscles that is worse if she is sitting for a long period of time. She is on Prozac for many years for depression. She tried going off it 2 years ago and this was successful for a while but then she got depressed and went back on it. It continues to help her mood since then. 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 She is unaccompanied. Not present: her daughter, Deneen. 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 AND, she has a cold.BUT she is still dancing on fridays, not giving up. >>>>>>>>>>>>>>>>>>>> >September 10, 2022Since October 09, 2021 neurology follow-up encounter, she has been doing well with her neuropathy. She still feels the tingling daily, hands more than feet. In the hands, it is from the wrists distally. That has not stopped her from taking up sewing again over the past year. She is slow but she can do it. If she forgets the gabapentin 200 mg every 8 AM, she begins to notice more intense tingling later in the day, especially in the evening. Therefore, she has not tried to reduce further since 2020 reduction from 200 mg twice a day down to her present once a day dosing. She has no side effects to the gabapentin.She walks well without stumbling and Moreover, she has continued her Saturday weekly dancing. She really enjoys this and she is dancing better, able to do some movements with bending down and standing up that she was not previously able to do. She continues her daily home exercises for balance that she learned from physical therapyShe has had reconsultation with cardiology after not seeing them for a long time, context developmental with a heart murmur; and hypertension. They have increased her blood pressure medication amlodipine from 2.5 mg up to 5 mg. There have been no other medication changes and there have been no changing medical issues. Her mood is good. >>>>>>>>>>>>>>>>>>>> > October 09ince November 02, 2020 neurology follow-up encounter, her tingling has improved so that she has been able to reduce her dose of gabapentin from 200 mg 8 AM and 200 mg 2 PM to just 200 mg 8 AM. She had no side effects but reiterates what she has said in the past s he wishes to minimize medication because of the POTENTIAL of side effects. In this. She never tried any of the [id number]-[id number] suggestions I made, lidocaine 4% cream or capsaicin cream.She noticed that the reduction of gabapentin in intermittent worsened tingling right around bedtime. Yet, after she has gotten into bed, that worsened tingling has not been severe at all and has not hindered sleep at all.Her only other medication change has been reduction of one of her blood pressure medications, amlodipine, up from 5 mg down to 2.5 mg. This was for the same reason as with the gabapentin [facility] philosophy on minimizing medication doses. I told her that I believe it is important to treat hypertension sufficiently to minimize the chance of stroke. She agrees with me on that.She has continued with her improved ability to use her hands. She has been driving for over a year now and this is going well. 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 She has switched all her other jewelry to magnetic attachments with the help of one of her relatives.She has had no recurrence of any falls following the two falls leading to October 2020 appointment. She continues to walk without any gait aid. She notices no weakness. She notices some instability and has to be careful with uneven surfaces. She dances once a week and loves this part of her life. She calls herself a dancing mama. She spontaneously notes that continues religiously physical therapy rehabilitation exercises that she learned in 2019 and feels that she will always have to do this. She notices chronic differences from before Flak[place] and has learned to live with that. Presenting symptomatology was reviewed from initial neurology consultation November 12, 2018: In July 2018, she developed numbness and weakness, slowly worsening, making it difficult to pursue daily activities. 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 There was no intubation. She did not lose bladder function. There was no problem with her heart. She was discharged for one month of rehabilitation at [facility], another month of rehabilitation at [facility] and has been home since the very end of September, 3 weeks ago, with home PT and home OT. A visiting nurse comes periodically to monitor her medications but she is in charge of her day to day medications. She continues to walk with her walker. She does not feel much imbalance. She does not report recent fall. Her main strength issue isnt upper extremities where she cannot lift her shoulders and her shoulders feel very stiff. Her main pain issue is in her hands and feet where she has 5-6/10 pain that is tolerable although she wishes it was less. She cannot say whether gabapentin 200 mg 3 times a day helps. Higher dose caused her drowsiness but this resolved with lowering to the present dose which causes no side effects. She cannot say whether Tylenol 1000 mg 3 times a day is providing any benefit. She also has squishy discomfort in her gluteal muscles that is worse if she is sitting for a long period of time. She is on Prozac for many years for depression. She tried going off it 2 years ago and this was successful for a while but then she got depressed and went back on it. It continues to help her mood since then. 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 She is unaccompanied. Not present: her daughter, Deneen. >>>>>>>>>>>>October 07, 2024Since September 16, 2023 Neurology follow-up encounter, she decided to stay on just the morning dose of gabapentin, 200 mg every 8 AM. To review, in August 2023, hand/foot tingling predominant in the evening was bothering her enough so that we made a decision for me to increase her gabapentin from 200 mg every 8 AM => 200 mg 8 AM/8 PM. This is context a reduction from 200 mg 8 AM/8 PM 2020 => 2021 when she wanted to reduce gabapentin on the principle of minimizing gabapentin because of its POTENTIAL for side effects.She was able to deal with the predominant evening tingling throughout most of the next year.However, on the evening of September 10, 2024, she had painful burning bilaterally in her feet. She was scared that she had a relapse of Guillain-Porter syndrome. The next day, September 11, she went to the emergency room and was admitted to [facility] September 13. They told her that she did not have a relapse of Guillain-Porter syndrome. However, they agreed that she had neuropathy. B12 studies were normal. They gave her gabapentin in the hospital twice a day. She is unsure of the dose. At some point, they suggested gabapentin 300 mg capsules. I see a fill for 1 capsule 300 mg daily at the [facility] pharmacy. She has never taken that. However, during and since that hospital admission, she has been taking 200 mg gabapentin morning and evening (either 5 PM or 8 PM).She has never had return of the burning pain in the evening that occurred singularly on the evening of September 10, 2024. She continues to have evening predominant tingling distally in the extremities, most bothersome in the feet. It is not bad enough to prevent her from going to sleep.She continues to have joint pain in her hands, not so much in her feet. That did not change with the adjustment of her gabapentin. She is having no side effects to the gabapentin. In particular, she walks well and her walking does not worsen with increasing gabapentin. 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 AND, she has a cold.BUT she is still dancing on fridays, not giving up. >>>>>>>>>>>>>>>>>>>> >September 10, 2022Since October 09, 2021 neurology follow-up encounter, she has been doing well with her neuropathy. She still feels the tingling daily, hands more than feet. In the hands, it is from the wrists distally. That has not stopped her from taking up sewing again over the past year. She is slow but she can do it. If she forgets the gabapentin 200 mg every 8 AM, she begins to notice more intense tingling later in the day, especially in the evening. Therefore, she has not tried to reduce further since 2020 reduction from 200 mg twice a day down to her present once a day dosing. She has no side effects to the gabapentin.She walks well without stumbling and Moreover, she has continued her Saturday weekly dancing. She really enjoys this and she is dancing better, able to do some movements with bending down and standing up that she was not previously able to do. She continues her daily home exercises for balance that she learned from physical therapyShe has had reconsultation with cardiology after not seeing them for a long time, context developmental with a heart murmur; and hypertension. They have increased her blood pressure medication amlodipine from 2.5 mg up to 5 mg. There have been no other medication changes and there have been no changing medical issues. Her mood is good. >>>>>>>>>>>>>>>>>>>> > October 09ince November 02, 2020 neurology follow-up encounter, her tingling has improved so that she has been able to reduce her dose of gabapentin from 200 mg 8 AM and 200 mg 2 PM to just 200 mg 8 AM. She had no side effects but reiterates what she has said in the past s he wishes to minimize medication because of the POTENTIAL of side effects. In this. She never tried any of the imnr-dgn-pbovrit suggestions I made, lidocaine 4% cream or capsaicin cream.She noticed that the reduction of gabapentin in intermittent worsened tingling right around bedtime. Yet, after she has gotten into bed, that worsened tingling has not been severe at all and has not hindered sleep at all.Her only other medication change has been reduction of one of her blood pressure medications, amlodipine, up from 5 mg down to 2.5 mg. This was for the same reason as with the gabapentin h [facility] philosophy on minimizing medication doses. I told her that I believe it is important to treat hypertension sufficiently to minimize the chance of stroke. She agrees with me on that.She has continued with her improved ability to use her hands. She has been driving for over a year now and this is going well. 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 She has switched all her other jewelry to magnetic attachments with the help of one of her relatives.She has had no recurrence of any falls following the two falls leading to October 2020 appointment. She continues to walk without any gait aid. She notices no weakness. She notices some instability and has to be careful with uneven surfaces. She dances once a week and loves this part of her life. She calls herself a dancing mama. She spontaneously notes that continues religiously physical therapy rehabilitation exercises that she learned in 2019 and feels that she will always have to do this. She notices chronic differences from before Fl[place] and has learned to live with that. Presenting symptomatology was reviewed from initial neurology consultation November 12, 2018: In July 2018, she developed numbness and weakness, slowly worsening, making it difficult to pursue daily activities. 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 There was no intubation. She did not lose bladder function. There was no problem with her heart. She was discharged for one month of rehabilitation at [facility], another month of rehabilitation at [facility] and has been home since the very end of September, 3 weeks ago, with home PT and home OT. A visiting nurse comes periodically to monitor her medications but she is in charge of her day to day medications. She continues to walk with her walker. She does not feel much imbalance. She does not report recent fall. Her main strength issue isnt upper extremities where she cannot lift her shoulders and her shoulders feel very stiff. Her main pain issue is in her hands and feet where she has 5-6/10 pain that is tolerable although she wishes it was less. She cannot say whether gabapentin 200 mg 3 times a day helps. Higher dose caused her drowsiness but this resolved with lowering to the present dose which causes no side effects. She cannot say whether Tylenol 1000 mg 3 times a day is providing any benefit. She also has squishy discomfort in her gluteal muscles that is worse if she is sitting for a long period of time. She is on Prozac for many years for depression. She tried going off it 2 years ago and this was successful for a while but then she got depressed and went back on it. It continues to help her mood since then. Darryl Diana MD [address] [place] [address] [place], [id number], [facility] Neurology [facility] 10/07/2024 08:49:16 OBGyn Episode No OBEpisode recorded.
--- OUTSIDE RECORDS SUMMARY | 2025-01-25 10:16 | XMS_ITS | Clinical Summary ---
Author Organization [address] [place] [address] Address [address] [place] [address] Phone Care Team Providers Care Child Care Centre Manager Name Role Phone Vanessa Kelly MD Primary Care Provider [phone] Allergies Active Allergy Reactions Criticality Noted Date Comments Influenza A (H1n1) Vac 200810/30/19 19 History of GB Other 04/22/2017 Medications gabapentin (NEURONTIN) 100 mg capsule Take 2 Capsules by mouth daily. Prescribed by neurologist, LILI Blunt Active fluticasone-doris meterol (ADVAIR DISKUS) 250-50 mcg/dose diskus inhaler 4 02/17/20 25 Active albuterol HFA (PROAIR HFA ; PROVENTIL HFA ; VENTOLIN HFA) 90 mcg/actuation inhaler Inhale 2 Puffs into the lungs every 4 hours as needed for Cough or Wheezing. 4 Active calcium carbonate 1,500 mg (600 mg elemental calcium) tablet Take 1 Tablet by mouth 2 times daily (with meals). 4 Active cholecalciferol (VITAMIN D-3) 50 mcg (2,000 unit) tablet Take 1 tablet (2,000 Units total) by mouth 1 (one) time each day. 4 Active alendronate (FOSAMAX) 70 mg tablet 4 Active ASCORBIC ACID, VITAMIN C, ORAL Take by mouth daily. Active multivitamin (MULTIPLE VITAMINS ORAL) Take by mouth daily. Active acetaminophen (TYLENOL) 500 mg tablet Take 1 Tab by mouth 3 times daily. Active ketorolac (ACULAR) 0.5 % ophthalmic solution Administer 1 drop into the right eye. Active prednisoLONE acetate (PRED FORTE) 1 % ophthalmic suspension Administer 1 drop into the right eye 4 (four) times a day. Active FLUoxetine (PROzac) 20 mg capsule TAKE 1 CAPSULE BY MOUTH DAILY 90 capsule 3 5 Active cyanocobalamin (VITAMIN B-12) 1,000 mcg tablet Take 1 tablet (1,000 mcg total) by mouth 1 (one) time each day. 90 each 1 5 Active amLODIPine (NORVASC) 10 mg tablet Take 1 tablet (10 mg total) by mouth 1 (one) time each day. 100 tablet 3 5 Active atenoloL (TENORMIN) 50 mg tablet Take 1 tablet (50 mg total) by mouth 1 (one) time each day. 90 tablet 3 5 Active Active Problems Problem Noted Date Diagnosed Date VOSS (dyspnea on exertion) 02/12/2022 Assessment & Plan (03/27/2024 5:35 PM EST): Assessment & Plan (03/24/2024 4:10 PM EST): Orders: ECG 12 lead Murmur 02/12/2022 Abnormal gait 06/06/2021 Overview (12/09/2023): 11/02/20- Unsteadiness on feet follows w/ Dr. [facility] Midline cystocele 04/17/2019 GBS (Guillain Cherokee syndrome) ([facility] V24) 08/25 Overview (12/09/2023): 07/2018, s/p EMG, MRI cervical and thoracic spine normal S/p IVIG Osteoporosis 12/17/2017 Overview (12/09/2023): Spine: T-score is -2.7; Left hip: T-score is -1.9 Follows with arthritis treatment [facility] 01/24/2017 Assessment & Plan (03/27/2024 5:35 PM EST): Orders: Lipid panel with reflex to direct LDL; Future Adjustment disorder with anxiety 12/12/2016 Major depressive disorder, r ecurrent, moderate (CMS/HCC V24, CMS/HCC V28) 12/12/2016 Asthma 11/13/2016 Essential hypertension 03/21/2016 Assessment & Plan (03/27/2024 5:35 PM EST): Assessment & Plan (03/24/2024 4:10 PM EST): Gastroesophageal reflux disease without esophagi tis 03/21/2016 VSD (ventricular septal defect) 03/21/2016 Overview (12/09/2023): No symptoms, never repaired Assessment & Plan (03/27/2024 5:35 PM EST): Assessment & Plan (03/24/2024 4:10 PM EST): Immunizations Immunization Administration Dates Next Due Influenza trivalent, 0.5mL ( Fluad) 65yo and older 01/25/2017,10/26/2011,11/08/2010,11/18,01/28/2009 Influenza trivalent, 0.5mL, preservative free (Fluarix; FluLaval; Fluzone) ages 6mo and older (Afluria) 3 years and older 02/04/2014 Pneumococcal conjugate 13 va lent (Prevnar 13, PCV13) 2mo and older 02/24/2018 Pneumococcal polysaccharide 23 valent (Pneumovax 23) 2yo and older 11/08/2010 Td Tetanus diptheria (Tdvax) 7yo and older 02/24/2018 Tdap Tetanus diptheria acell ular pertussis (Boostrix; Adacel) 7yo and older 06/08/2010 Zoster Live 06/30/2012 Surgical History Surgery Date Site/Laterality Comments OTHER SURGICAL HISTORY PROCEDURE: R HRT CATHETERIZATION CONGENITAL CARDIAC ANOMALY; 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 COLONOSCOPY 12/18/2017 PROCEDURE: HISTORICAL COLONOSCOPY; COMMENT: negative Medical History Medical History Date Comments Essential hypertension 03/21/2016 DX:Essent ial hypertension Gastroesophageal reflux dise ase without esophagitis 03/21/2016 DX:Gastroesophageal reflux d isease without esophagitis VSD (ventricular septal defect) 03/21/2016 DX:VSD (ventricular septal defect); COMMENT: No symptoms, never repaired Adjustment disorder with anxiety 12/12/2016 DX:Adjustment disorder with anxiety Hyperlipidemia 01/24/2017 DX:Hyperlipidemi a Major depressive disorder, r ecurrent, moderate ([facility], [facility] V28) 12/12/2016 DX:Major depressiv e disorder, recurrent, moderate ([facility]) Asthma 11/13/2016 DX:Asthma Osteoporosis 12/17/2017 DX:Osteoporosis; COMMENT: Spine: T-score is -2.7; Left hip: T-score is -1.9 Follows with arthritis treatment center GBS (Guillain Cherokee syndrome ) ([facility] V24) 09/05/2018 DX:GBS (Guillain Cherokee syndr ome) ([facility]); COMMENT: 07/2018, s/p EMG, MRI cervical and thoracic spine normal S/p IVIG Abnormal gait 06/06/2021 DX:Abnormal gait ; COMMENT: Unsteadiness on feet follows w/ Dr. [facility] Midline cystocele 04/17/2019 DX:Midline cys tocele Family History Medical History Relation Name Comments Diabetes Father dx at older age Diabetes Mother dx at older age Breast cancer Other m cousin 40s Colon cancer Neg Hx Ovarian cancer Neg Hx Relation Name Status Comments Daughter 1 Alive Daughter 2 Alive Father cva stroke - 70 s Mother 84 - chf Other m cousin 40s Son Alive Social History Tobacco Use Types Packs/Day Years Used Date Smoking Tobacco: Never Passive Smoke Exposure: Never Smokeless Tobacco: Never Tobacco Cessation:Counseling Given: Not Answered Alcohol Use Standard Drinks/Week Comments Yes 0 (1 standard drink = 0.6 oz pur e alcohol) Housing Instability Answer Date Recorde d Are you worried that in the next 2 months you may not have stable housing? No 09/16/2024 Food Access & Nutrition Answer Date Rec orded Do you have access to a vari ety of food including fruits and vegetables? Yes 09/16/2024 Access to Healthcare Answer Date Record ed Within the last 3 months, ho w many times did you visit the emergency department for your medical care? 1 09/16/2024 Health Literacy Answer Date Recorded How often do you need to hav e someone help you when you read instructions, pamphlets, or other written material from your doctor or pharmacy? Never 09/16/2024 Caregiver: How often do you need to have someone help you when you read instructions, pamphlets, or other written material from your doctor or pharmacy? Not on file 09/16/2024 Financial Risk Answer Date Recorded How hard is it for you to pa y for the very basics like food, housing, medical care, and air conditioning / heating? Not very hard 09/16/2024 Transportation Answer Date Recorded Has the lack of transportati on kept you from meetings, work, or from getting things needed for daily living? No Has the lack of transportati on kept you from medical appointments or from getting medications? No 09/16/2024 Social Isolation Answer Date Recorded How often do you feel lonely or isolated from th ose around you? Never 09/16/2024 Food Risk Answer Date Recorded Within the past 12 months we worried whether our food would run out before we got money to buy more. Never true 09/16/2024 Within the past 12 months th e food we bought just didn't last and we didn't have money to get more. Never true 09/16/2024 Dependent Care Answer Date Recorded Do you need help finding or paying for care for your loved ones. For example, vocational childcare teacher or elderly care for an older adult? No 09/16/2024 Education Answer Date Recorded Do you think completing more education or training, like finishing a GED, going to college, or learning a trade, would be helpful for you? N/A 09/16/2024 Employment and Income Answer Date Recor ded During the last four weeks, have you been actively looking for work? No 09/16/2024 Living Situation Answer Date Recorded What is your living situation? Unrecognized valu e 09/16/2024 Comments No Sex and Gender Information Value Date Recorded Sex Assigned at Not on file Legal Sex Female 7:25 AM EST Gender Identity Not on file Sexual Orientation Not on file Obstetrics History Para Term AB IAB SAB Ectopic Multiple Livin g Live Births 3 3 3 3 Date Outcome GA Total Labor Labor/2nd/3rd Weight Sex Type Anes PTL Jeanette A1 A5 Name Clin Term Term Term Last Filed Vital Signs Vital Sign Reading Time Taken Comments Blood Pressure 135/76 10/07/2024 3:31 PM EDT Pulse 70 09/17/2024 10:22 AM EDT Temperature 36.5 C (97.7 F) 10/07/2024 3:31 PM EDT Respiratory Rate 14 10/07/2024 3:31 PM EDT Oxygen Saturation 98% 04/21/2024 8:51 AM EST Inhaled Oxygen Concentration - - Weight 73 kg (161 lb) 10/07/2024 3:31 PM EDT Height 152.4 cm (5') 10/07/2024 3:31 PM EDT Body Mass Index 31.44 10/07/2024 3:31 PM EDT Plan of Treatment Upcoming Encounters Date Type Department Care Team (Late st Contact Info) Description 03/31/2025 11:15 AM EST Office Visit Adult Medicine [facility] [address] [place] [address] Vanessa Kelly MD [address] [place] [address] Health Maintenance Due Date Last Done Comments Zoster Vaccines (1 of 2) 08/25/2012 06/30/2012 COVID-19 Vaccine (3 - Moderna risk series) 11/18/2020 10/21/2020, 08/24/2020 Pneumococcal Vaccine: 50+ Years (3 of 3 - PCV20 or PCV21) 02/24/2023 02/24/2018, 11/08/2010, 02/12/2006 RSV Immunization Adult Patients (1 - 1-dose 75+ series) 2024 Hypertension/CHF/CAD Annual BMP Blood Test 08/18/2024 08/19/2023, 08/19/2023 Influenza Vaccine (#1) 2024 7, 02/04/2014, 01/12/2013, Additional history exists Falls Risk Assessment 03/27/2025 03/27/2024 Medicare Annual Wellness Visit 03/27/2025 03/27/2024 Social Influencers of Health Screening 09/16/2025 09/16/2024 Colorectal Cancer Screening: Colonoscopy 12/19/2027 12/18/2017 DTaP,Tdap,and Td Vaccines (3 - Td or Tdap) 02/25/2028 02/24/2018, 06/08/2010 Cholesterol Screening (Lipid Panel) 06/25/2029 06/25/2024, 08/19/2023, 08/19/2023 Osteoporosis Screening (Bone Density Screening) 05/15/2033 05/16/2023, 12/16/2017 Hepatitis C Screening Completed 01/24/2017 Breast Cancer Screening Discontinued 04/13/19, 03/28/2023, 03/20/2022, Additional history exists Depression Screening Completed 09/16/2024 HIB Vaccines Aged Out No longer eligi ble based on patient's age to complete this topic HPV Vaccines Aged Out No longer eligi ble based on patient's age to complete this topic Hepatitis A Vaccines Aged Out No long er eligible based on patient's age to complete this topic Hepatitis B Vaccines Aged Out No long er eligible based on patient's age to complete this topic IPV Vaccines Aged Out No longer eligi ble based on patient's age to complete this topic MMR Vaccines Aged Out No longer eligi ble based on patient's age to complete this topic Meningococcal ACWY Vaccine Aged Out N o longer eligible based on patient's age to complete this topic Meningococcal B Vaccine Aged Out No l onger eligible based on patient's age to complete this topic RSV Immunization Patients Under 20 months Aged Out No longer eligible based on patient's age to complete this topic Varicella Vaccines Aged Out No longer eligible based on patient's age to complete this topic Procedures Procedure Name Priority Date/Time Associated Diagnosis Comments LIPID PANEL WITH REFLEX TO DIRECT LDL Routine 06/25/2024 9:12 AM EDT Other hyperlipidemia MG MAMMO DIGITAL SCREENING W HARPREET BILAT Routine 04/13/2024 8:43 AM EST Encounter for screening mammogram for breast cancer ANNUAL BMP BLOOD TEST Routine 08/19/2023 DXA BONE DENSITY STUDY 1+ SITS AXIAL SKEL Routine 05/16/2023 10:39 AM EDT Encounter for general adult medical examination with abnormal findings COLONOSCOPY Routine 12/18/2017 HEPATITIS C SCREENING Routine 01/24/2017 from Last 3 Months or Most Recently Relevant to Health Maintenance Results * (ABNORMAL) Lipid panel with reflex to direct LDL (06/25/2024 9:12 AM EDT) Cholesterol 232(H) 0 - 200 mg/dL LAB CHEMISTRY METHOD 06/25/2024 1:57 PM EDT [facility] Triglycerides 173(H) 0 - 150 mg/dL LAB CHEMISTRY METHOD 06/25/2024 1:57 PM EDT [facility] HDL 66 >=40 mg/dL LAB CHEMISTRY METHOD 06/25/2024 1:57 PM EDT [facility] LDL Calculated 131(H) 0 - 100 mg/dL LAB CHEMISTRY METHOD 06/25/2024 1:57 PM EDT [facility] VLDL Cholesterol Herbert 34.6 mg/dL LAB CHEMISTRY METHOD 06/25/2024 1:57 PM EDT [facility] Non HDL Chol. (LDL+VLDL) 166(H) <145 mg/dL LAB CHEMISTRY METHOD 06/25/2024 1:57 PM EDT [facility] Chol/HDL Ratio 3.5 0.0 - 4.4 LAB CHEMISTRY METHOD 06/25/2024 1:57 PM EDT [facility] Blood Venous blood specimen / Unknown Venipuncture / Unknown 06/25/2024 9:12 AM EDT 06/25/2024 9:12 AM EDT us Vanessa Kelly MD LAB BLOOD ORDERABLES Final Resul t [facility] [address] [place] [address], [place] [phone] * MG Mammo Digital Screening w Harpreet bilat (04/13/2024 8:43 AM EST) Anatomical Region Laterality Modality Breast Bilateral Mammography 04/13/2024 3:50 PM EST Impressions 04/13/2024 3:54 PM EST Benign. BI-RADS CATEGORY: 2 - BENIGN RECOMMENDATION: Screening bilateral mammogram is recommended in 1 year. Mammo Location: [facility], [address] [place] [address], [id number], . -------- FINAL REPORT -------- Dictated By: Elvia Chu Dictated Date: 04/13/2024 15:50 ET Assigned Physician: Elvia Chu Reviewed and Electronically Signed By: Elvia Cuh Signed Date: 04/13/2024 15:54 ET Workstation ID: [id number] Transcribed By: Self Edit Transcribed Date: 04/13/2024 15:50 ET Narrative 04/13/2024 3:54 PM EST CLINICAL: 74 years old, Female, routine annual exam. COMPARISON: Mammograms dating back to 03/15/2021 with most recent of 03/28/2023. TECHNIQUE: Bilateral MLO and CC views were obtained digitally with 3-D mammogram (digital breast tomosynthesis). Computer-aided detection was utilized in evaluation of this exam (CAD). FINDINGS: There is no evidence of suspicious mass or architectural distortion. Benign focal asymmetry in the medial retroareolar left breast is unchanged. No worrisome calcifications are evident. There has been no significant change from prior exam(s). BREAST DENSITY: B - There are scattered areas of fibroglandular density. Procedure Note Elvia Chu MD - 04/13/2024 CLINICAL: 74 years old, Female, routine annual exam. COMPARISON: Mammograms dating back to 03/15/2021 with most recent of03/28/2023. TECHNIQUE: Bilateral MLO and CC views were obtained digitally with 3-Dmammogram (digital breast tomosynthesis). Computer-aided detection wasutilized in evaluation of this exam (CAD). FINDINGS: There is no evidence of suspicious mass or architectural distortion.Benign focal asymmetry in the medial retroareolar left breast isunchanged. No worrisome calcifications are evident. There has been nosignificant change from prior exam(s). BREAST DENSITY: B - There are scattered areas of fibroglandular density. IMPRESSION: Benign. BI-RADS CATEGORY: 2 - BENIGN RECOMMENDATION: Screening bilateral mammogram is recommended in 1 year. Mammo Location: [facility], [address] [place] [address], [id number], . -------- FINAL REPORT -------- Dictated By: Elvia Chu Dictated Date: 04/13/2024 15:50 ET Assigned Physician: Elvia Chu Reviewed and Electronically Signed By: Elvia Chu Signed Date: 04/13/2024 15:54 ET Workstation ID: [id number] Transcribed By: Self Edit Transcribed Date: 04/13/2024 15:50 ET Vanessa Kelly MD IMG BI PROCEDURES Final Result * Annual BMP Blood Test (08/19/2023) Annual BMP Blood Test ABSTRACTED Historical Provider HEALTH MAINTENANCE Final Result * DXA BONE DENSITY STUDY 1+ SITS AXIAL SKEL (05/16/2023 10:39 AM EDT) Anatomical Region Laterality Modality Bone Densitometr y 02/05/2023 12:0 3 PM EST Narrative 05/17/2023 7:10 PM EDT BONE DENSITY SCAN (DEXA): FINDINGS: Lumbar Spine T-score is -2.6. (SD relative to 20-29 y/o adult) Z-score is -0.2. (SD relative to age matched peers) This is considered osteoporosis by WHO criteria. Left Hip T-score is -2.6. Z-score is -0.5. This is considered osteoporosis by WHO criteria. Comparison exam(s): 12/16/2017. Unable to perform comparison with the prior examination due to technical issues. Lateral survey view of the thoracolumbar spine shows no significant compression deformities. IMPRESSION: IMPRESSION: Osteoporosis by WHO criteria. The [facility] Department of Internal Medicine recommends using National Osteoporosis Foundation (NOF) guidelines in treatment decisions related to osteoporosis. NOF guidelines suggest considering treatment for postmenopausal women and men aged 50 or older presenting with the following: History of hip or vertebral fracture. T-score = -2.5 (DXA) at the femoral neck, total hip, or spine, after appropriate evaluation to exclude secondary causes. Low bone mass (T-score between -1.0 and -2.5 at the femoral neck or spine) AND a 10-year probability of a hip fracture = 3% OR a 10-year probability of a major osteoporosis-related fracture = 20% based on the [place]-adapted WHO algorithm Please note that all treatment decisions require clinical judgment and consideration of individual patient factors, including patient preferences, co-morbidities, previous drug use, risk factors not captured in the FRAX model (e.g., frailty, falls, vitamin D deficiency, increased bone turnover, interval significant decline in bone density) and possible under- or over-estimation of fracture risk by FRAX. Optional alternative screening schedule based on bharathi Cha., [facility] March 15, 2011 for patients with osteopenia (based on hip BMD T-score) is as follows: * advanced osteopenia (T scores -2.00 to -2.49), BMD testing every year * moderate osteopenia (T scores -1.50 to -1.99), BMD testing every 5 years mild osteopenia or normal BMD (T scores -1.50 and higher), BMD testing every 15 years Procedure Note Kimi Sahni MD - 10/14/2023 BONE DENSITY SCAN (DEXA): FINDINGS: Lumbar Spine T-score is -2.6. (SD relative to 20-29 y/o adult) Z-score is -0.2. (SD relative to age matched peers) This is considered osteoporosis by WHO criteria. Left Hip T-score is -2.6. Z-score is -0.5. This is considered osteoporosis by WHO criteria. Comparison exam(s): 12/16/2017. Unable to perform comparison with theprior examination due to technical issues. Lateral survey view of the thoracolumbar spine shows no significantcompression deformities. IMPRESSION: IMPRESSION: Osteoporosis by WHO criteria. The [facility] Department of Internal Medicine recommendsusing National Osteoporosis Foundation (NOF) guidelines in treatment decisions related toosteoporosis. NOF guidelines suggest considering treatment for postmenopausal women and menaged 50 or older presenting with the following: History of hip or vertebral fracture. T-score = -2.5 (DXA) at the femoral neck, total hip, or spine, afterappropriate evaluation to exclude secondary causes. Low bone mass (T-score between -1.0 and -2.5 at the femoral neck or spine)AND a 10-year probability of a hip fracture = 3% OR a 10-year probability of a majorosteoporosis-related fracture = 20% based on the [place]-adapted WHO algorithm Please note that all treatment decisions require clinical judgment andconsideration of individual patient factors, including patient preferences, co- morbidities,previous drug use, risk factors not captured in the FRAX model (e.g., frailty, falls, vitaminD deficiency, increased bone turnover, interval significant decline in bone density) andpossible under- or over-estimation of fracture risk by FRAX. Optional alternative screening schedule based on [facility]harathi Cha., [facility] for patients with osteopenia (based on hip BMD T-score) is as follows: * advanced osteopenia (T scores -2.00 to -2.49), BMD testing every year * moderate osteopenia (T scores -1.50 to -1.99), BMD testing every 5years mild osteopenia or normal BMD (T scores -1.50 and higher), BMD testingevery 15 years Edwin Mandel NP IMG DXA PROCEDURES Final Res ult * Colonoscopy (12/18/2017) [facility] Colonoscopy no interpretation , abstracted Anatomical Region Laterality Modality Other Historical Provider HEALTH MAINTENANCE Final Result * Hepatitis C Screening (01/24/2017) [facility] Hepatitis C Screening ABSTRACTED Historical Provider HEALTH MAINTENANCE Final Result from Last 3 Months or Most Recently Relevant to Health Maintenance Insurance [facility] [place] [id number] [place] [address] Care Teams Child Care Centre Manager Relationship Specialty Start Date End Date Vanessa Kelly MD [address] [place] [id number] PCP - General Internal Medicine 10/17/20
== END 2025-01-25 09:19 | disposition home or self-care (01) ==
LOC: HO.HSM 08:58
PROVIDERS: PCP Internal Medicine; Visit Provider Psychiatry & Neurology Neurology
DX: G61.81 Chronic inflammatory demyelinating polyneuritis (principal)
CPT/HCPCS: 99204